=== PATIENT | male | born 1975 | race Caucasian/White ===

== ENCOUNTER → 2020-04-30 | Outpatient (CLI) | payer MEDICAID | LOC: VAS 14:44 | DX: Z13.6 Encounter for screening for cardiovascular disorders (principal); M79.605 Pain in left leg ==

== ENCOUNTER → 2021-10-15 | Outpatient (CLI) | payer BC, MEDICAID | LOC: RAD 08:05 | DX: S30.1XXA Contusion of abdominal wall, initial encounter (principal); X58.XXXA Exposure to other specified factors, initial encounter | CPT/HCPCS: Q9967 ==

== ENCOUNTER → 2021-12-03 | Outpatient (CLI) | payer BC, MEDICAID | LOC: RAD 09:37 | DX: K76.0 Fatty (change of) liver, not elsewhere classified (principal); N28.1 Cyst of kidney, acquired | CPT/HCPCS: Q9967 ==